=== PATIENT | female | born 1955 | race Caucasian/White ===

== ENCOUNTER 2017-04-01 11:23 | Outpatient (CLI) | payer BC | END 2017-04-01 11:24 | disposition home or self-care (01) | LOC: CP 11:23 | PROVIDERS: ATTEND Internal Medicine Critical Care Medicine | DX: R06.09 Other forms of dyspnea (principal); R05 Cough | CPT/HCPCS: 94060; 94727; 94729 ==

== ENCOUNTER 2017-06-04 20:30 | Outpatient (CLI) | payer BC | END 2017-06-04 20:31 | disposition home or self-care (01) | LOC: SLEEPLAB 20:30 | PROVIDERS: ATTEND Internal Medicine Critical Care Medicine | DX: G47.33 Obstructive sleep apnea (adult) (pediatric) (principal); R06.81 Apnea, not elsewhere classified; R53.83 Other fatigue | CPT/HCPCS: 95810 ==

== ENCOUNTER 2017-07-14 20:30 | Outpatient (CLI) | payer BC | END 2017-07-14 20:31 | disposition home or self-care (01) | LOC: SLEEPLAB 20:30 | PROVIDERS: ATTEND Internal Medicine Critical Care Medicine | DX: G47.33 Obstructive sleep apnea (adult) (pediatric) (principal); G47.52 REM sleep behavior disorder | CPT/HCPCS: 95811 ==

== ENCOUNTER 2017-09-17 08:22 | Outpatient (CLI) | payer BC ==
--- NOTE | 2017-09-17 09:19 | RAD ---
PA AND LATERAL CHEST: History: Dyspnea. FINDINGS: Comparison is made with exam of 02-18-17. The heart size is normal. The lungs are well expanded with stable mild chronic change. No focal areas of consolidation, pneumothorax, or pleural effusions are seen. There are degenerative changes in the spine. IMPRESSION: Stable exam. No acute process. POS: [facility]
== END 2017-09-17 08:23 | disposition home or self-care (01) ==
LOC: RAD 08:22
PROVIDERS: ATTEND Internal Medicine Critical Care Medicine
DX: R06.00 Dyspnea, unspecified (principal)
CPT/HCPCS: 71046

== ENCOUNTER 2018-02-15 13:31 | Outpatient (CLI) | payer BC ==
--- NOTE | 2018-02-15 11:25 | RAD ---
RADIOGRAPH CHEST 2 VIEWS: Date: 02-15-18 Time: 10:36 a.m. HISTORY: 63-year-old female with dyspnea. COMPARISON: 09-17-17 FINDINGS: There is a subtle new finding of partial silhouetting of the right cardiac border and the adjacent me dial portion of the right hemidiaphragm. It is possible that this apparent difference is due to sligh t positioning differences compared to the prior study. It is difficult to confirm an infiltrate in th e lateral view. The rest of the lungs are clear. No cardiomegaly or mediastinal widening. No pulmonar y edema, pleural effusion, or pneumothorax. IMPRESSION: 1. Questionable mild infiltrate in right middle lobe versus artifact. 2. Recommend follow up. [facility] POS: [facility]
== END 2018-02-15 13:32 | disposition home or self-care (01) ==
LOC: RAD 13:31
PROVIDERS: ATTEND Internal Medicine Critical Care Medicine
DX: R06.00 Dyspnea, unspecified (principal)
CPT/HCPCS: 71046

== ENCOUNTER 2018-05-27 09:56 | Outpatient (CLI) | payer MEDICARE, OTHER ==
--- NOTE | 2018-05-27 10:27 | RAD ---
CHEST TWO VIEWS: Comparison: 02-15-18 FINDINGS: Atherosclerosis of the aorta. Normal cardiac silhouette. The pulmonary vessels and hilum are normal. Costophrenic angles are clear. No consolidation or mass. No pneumothorax or osseous abnormality. Cerv ical fusion hardware is again noted. Stable calcified granuloma in the right midlung. IMPRESSION: No acute cardiopulmonary process. POS: [facility]
== END 2018-05-27 09:57 | disposition home or self-care (01) ==
LOC: RAD 09:56
PROVIDERS: ATTEND Otolaryngology
DX: R06.00 Dyspnea, unspecified (principal)
CPT/HCPCS: 71046

== ENCOUNTER 2018-11-23 12:54 | Outpatient (CLI) | payer MEDICARE, OTHER ==
--- NOTE | 2018-11-23 13:33 | RAD ---
2 views chest. HISTORY: Dyspnea. PA and lateral views of the chest is obtained. Calcification of the aorta seen. Mid right lung calcif ied granuloma seen. No acute intrathoracic abnormality seen. IMPRESSION: unremarkable 2 views chest. Transcribed Date/Time: 11/23/2018 1:40 PM
== END 2018-11-23 12:55 | disposition home or self-care (01) ==
LOC: RAD 12:54
PROVIDERS: ATTEND Internal Medicine Critical Care Medicine
DX: R06.00 Dyspnea, unspecified (principal)
CPT/HCPCS: 71046

== ENCOUNTER 2020-04-17 08:19 | Outpatient (CLI) | payer MEDICARE, OTHER ==
--- NOTE | 2020-04-17 08:32 | RAD ---
EXAM: XR Chest Pa Lat STANDARD PROVIDED CLINICAL HISTORY: Dyspnea COMPARISON: 11/23/2018 FINDINGS: Cardiac and mediastinal silhouettes is unchanged in appearance. Vascular calcification is again noted involving the aortic arch. Prominence of the pulmonary interstitium. Nodular density overlying the right midlung zone on the frontal view appears similar to multiple comparison exams. No lobar consoli dation, pleural fluid or pneumothorax apparent. IMPRESSION: Nonspecific prominence of the pulmonary interstitium.
== END 2020-04-17 08:20 | disposition home or self-care (01) ==
LOC: BICRAD 08:19
PROVIDERS: ATTEND Internal Medicine Critical Care Medicine
DX: R06.00 Dyspnea, unspecified (principal); J84.89 Other specified interstitial pulmonary diseases
CPT/HCPCS: 71046

== ENCOUNTER 2020-05-09 10:07 | Outpatient (CLI) | payer MEDICARE, OTHER ==
--- NOTE | 2020-05-09 11:37 | RAD ---
2 VIEW CHEST: Date: 05/09/2020 HISTORY: Dyspnea. COMPARISON: 04/17/2020. FINDINGS: Cardiomegaly is stable. Vascular markings within normal range and stable. New hazy opacity in peripheral right mid lung and peripheral right lower lung. Also streaky linear op acity in the left lower lung. These findings are concerning for bilateral ground-glass infiltrates. IMPRESSION: Findings suspicious for bilateral ground-glass type infiltrates. Consider COVID pneumonia. POS: [facility]
== END 2020-05-09 10:08 | disposition home or self-care (01) ==
LOC: BICRAD 10:07
PROVIDERS: ATTEND Internal Medicine Critical Care Medicine
DX: R06.00 Dyspnea, unspecified (principal); R91.8 Other nonspecific abnormal finding of lung field
CPT/HCPCS: 71046

== ENCOUNTER 2020-09-26 09:39 | Outpatient (CLI) | payer MEDICARE, OTHER | END 2020-09-26 09:40 | disposition home or self-care (01) | LOC: BICRAD 09:39 | PROVIDERS: ATTEND Internal Medicine Critical Care Medicine | DX: R06.00 Dyspnea, unspecified (principal) | CPT/HCPCS: 71046 ==

== ENCOUNTER 2020-12-31 09:38 | Outpatient (CLI) | payer MEDICARE, OTHER | END 2020-12-31 09:39 | disposition home or self-care (01) | LOC: BICRAD 09:38 | PROVIDERS: ATTEND Internal Medicine Critical Care Medicine | DX: R06.00 Dyspnea, unspecified (principal) | CPT/HCPCS: 71046 ==